=== PATIENT | male | born 1940 | race Caucasian/White ===

== ENCOUNTER → 2019-01-13 | Outpatient (CLI) | payer MEDICARE, BC ==
--- NOTE | 2019-01-13 15:45 | US ---
EXAMINATION TYPE: US kidneys/renal and bladder DATE OF EXAM: 01/13/2019 COMPARISON: NONE CLINICAL HISTORY: R94.4 Abnormal results of kidney function studies. EXAM MEASUREMENTS: Right Kidney: 11.8 x 5.7 x 4.8 cm Left Kidney: 14.7 x 6.2 x 5.6 cm Right Kidney: No hydronephrosis. Cystic area visualized mid pole measuring 1.3 x 1.3 x 1.2 cm Left Kidney: No hydronephrosis. Two cystic areas visualized, largest lower pole measuring 9.2 x 8.3 x 8.8 cm Bladder: wnl Bilateral Jets seen: Yes Cortical medullary differentiation maintained within the kidneys. Cystic foci appear simple cystic IMPRESSION: Bilateral renal cysts
== END | disposition home or self-care (01) ==
LOC: RADUSWWP 15:01
PROVIDERS: ATTEND Family Medicine
DX: N28.1 Cyst of kidney, acquired (principal)
CPT/HCPCS: 76770

== ENCOUNTER → 2021-07-09 | Outpatient (CLI) | payer MEDICARE, BC ==
--- NOTE | 2021-07-09 11:59 | XR ---
EXAMINATION TYPE: XR abdomen 2V DATE OF EXAM: 07/09/2021 COMPARISON: NONE HISTORY: Pain TECHNIQUE: One view abdominal series FINDINGS: The osseous structures are intact. The bowel gas pattern is nonspecific. 6 mm paraspinal calcificati on adjacent to the L4 level on the left. Arthropathy of the hips correlate for femoral acetabular imp ingement with significant hypertrophic change of the lateral margin of the acetabulum. Hypertrophic a nd degenerative change of the spine. Calcifications in the pelvis are nonspecific but likely vascular . IMPRESSION: 1. Nonspecific abdomen with no obstruction 2. Left paraspinal calcification along the left lateral margin of L4 could be within the course of th e left ureter correlate clinically. 3. 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
== END | disposition home or self-care (01) ==
LOC: RADXRYALE 11:19
PROVIDERS: ATTEND Physician Assistant Medical
DX: M12.852 Other specific arthropathies, not elsewhere classified, left hip (principal); M12.851 Other specific arthropathies, not elsewhere classified, right hip; M61.48 Other calcification of muscle, other site
CPT/HCPCS: 74019

== ENCOUNTER → 2021-07-09 | Outpatient (CLI) | payer MEDICARE, BC ==
--- NOTE | 2021-07-09 15:10 | CT ---
EXAMINATION TYPE: CT abdomen pelvis wo con DATE OF EXAM: 07/09/2021 COMPARISON: 07/09/2021 HISTORY: Generalized abdominal pain, no BM x [address] DLP: 1014.8 mGycm Automated exposure control for dose reduction was used. TECHNIQUE: Helical acquisition of images was performed from the lung bases through the pelvis. FINDINGS: LUNG BASES: Segmental changes involving the lung bases are suggestive of atelectasis. Subpleural 2 mm nodule right lower lobe. Finding likely benign. Coronary artery calcification. Atherosclerotic salas e aorta. Subpleural nodule right lower lobe axial image 1. LIVER/GB: No significant abnormality is appreciated. PANCREAS: No significant abnormality is seen. SPLEEN: No significant abnormality is seen. ADRENALS: No significant abnormality is seen. KIDNEYS: There is a 4 mm proximal ureteral calculus with a moderate to severe hydronephrosis and additional pa rapelvic renal cysts simple appearing cyst. However there is a large complicated cyst with calcificat ion and septation measuring 9 cm. Additionally appears to be a 4 mm calculus within the bladder near the UVJ. ADENOPATHY: None visualized. OSSEOUS STRUCTURES: Hypertrophic and degenerative changes of the spine. BOWEL: Bowel gas pattern is nonspecific with changes of diverticulosis but no obstruction. OTHER: Prostate enlarged there is fat-containing bilateral inguinal hernias. Atherosclerotic change o f the aorta and its branch vessels. Fat-containing intramuscular lipoma along lateral margin of the r ight hip measuring 2.2 cm. IMPRESSION: 1. Moderate to severe left hydronephrosis secondary to obstructing proximal left ureteral calculus. C orresponds to the x-ray abnormality. However, additionally there is a 4 mm calculus which appears to be within the bladder at the level of the left UVJ. 2. A complex 9 cm left renal cystic lesion with septation and calcification. Recommend follow-up MRI for further assessment to determine its Bosniak classification. 3. Prostate hypertrophy.
== END | disposition home or self-care (01) ==
LOC: RADCTMAIN 12:59
PROVIDERS: ATTEND Family Medicine
DX: N13.2 Hydronephrosis with renal and ureteral calculous obstruction (principal); N28.1 Cyst of kidney, acquired; N40.0 Benign prostatic hyperplasia without lower urinary tract symptoms; K57.92 Diverticulitis of intestine, part unspecified, without perforation or abscess without bleeding
CPT/HCPCS: 82565; 84520; 74176; 36415; Q9967

== ENCOUNTER → 2021-08-13 | Outpatient (CLI) | payer MEDICARE, BC ==
--- NOTE | 2021-08-13 12:24 | XR ---
EXAMINATION TYPE: XR KUB DATE OF EXAM: 08/13/2021 COMPARISON: CT dated 07/09/2021 INDICATION: Left-sided stone, previous stone in bladder TECHNIQUE: 2 views of the abdomen FINDINGS: 5.5 cm rounded radiopaque shadow is seen in the left side of the pelvis, likely representing the prev iously seen obstructing stone in the urinary bladder. No definite radiodense renal calculi identified by this x-ray. Bilateral pelvic phleboliths and scattered arterial calcifications. Degenerative changes of the lower thoracic, lumbar spine and hip joints. IMPRESSION: The described left pelvic 5.5 cm radiopaque shadow likely represents the previously seen obstructing urinary bladder stone. It is not possible to assess for interval change regarding the previously seen left-sided hydronephrosis by this x-ray. Further ultrasound or CT assessment can be considered if cl inically required.
== END | disposition home or self-care (01) ==
LOC: RADXRMAIN 10:08
PROVIDERS: ATTEND Urology
DX: N21.0 Calculus in bladder (principal)
CPT/HCPCS: 74018

== ENCOUNTER → 2021-09-10 | Outpatient (CLI) | payer MEDICARE, BC ==
--- NOTE | 2021-09-10 11:46 | XR ---
KUB HISTORY: Ureteral calculus Frontal KUB and 2 images correlated prior KUB 08/13/2021, CT scan 07/09/2021 Calcification in the left hemipelvis is stable and may be at the level the distal left ureter. Vascul ar calcifications are present within the pelvis. Suspect lumbar spondylosis, there is suggestion of b enefit to spine at the distal thoracic spine. Correlate for ankylosing spondylitis. Arthropathy noted within the hips, correlate for femoral acetabular impingement. IMPRESSION: Findings are stable, consistent with distal left ureteral calculus.
== END | disposition home or self-care (01) ==
LOC: RADXRMAIN 09:48
PROVIDERS: ATTEND Urology
DX: N20.1 Calculus of ureter (principal)
CPT/HCPCS: 74018

== ENCOUNTER → 2021-10-13 | Outpatient (CLI) | payer MEDICARE, BC ==
--- NOTE | 2021-10-13 14:30 | US ---
EXAMINATION TYPE: US kidneys/renal and bladder DATE OF EXAM: 10/13/2021 COMPARISON: CT & US CLINICAL HISTORY: N20.1 CALCULUS OF LT URETER. H/O left renal stone and cyst EXAM MEASUREMENTS: Right Kidney: 12.4 x 5.9 x 5.4 cm Left Kidney: 13.8 x 6.0 x 5.5 cm Right Kidney: Cyst upper/medial= 1.8 x 1.3 x 1.6 cm Left Kidney: No evidence of hydro, cyst with septation lower pole= 9.2 x 7.1 x 7.7 cm Bladder: Possible 7mm stone at dependant portion Bilateral Jets seen: Yes There is no evidence for hydronephrosis at this point in time. No nephrolithiasis is seen. The urin marychuy bladder is anechoic. Bilateral ureteral jets are seen. IMPRESSION: 1. Mildly Septated cyst lower pole left kidney. Overall similar appearance to prior study.
--- NOTE | 2021-10-13 21:21 | XR ---
EXAMINATION TYPE: XR KUB DATE OF EXAM: 10/13/2021 COMPARISON: X-ray dated 09/10/2021 INDICATION: Left ureteric stone TECHNIQUE: Supine view of the abdomen and pelvis FINDINGS: The previously seen distal left ureteric stone is apparently seen on the right side today, likely dis placed within the urinary bladder. No other definite urinary calculi identified. Stable degenerative changes of the lower thoracic, lumbar spine, sacroiliac joints and hip joints. Ar terial atherosclerotic calcifications. IMPRESSION: Findings suggestive of displacement of the known left distal ureteric obstructing stone seen today on the right side of the pelvis likely within the urinary bladder.
== END | disposition home or self-care (01) ==
LOC: RADUSWWP 13:17
PROVIDERS: ATTEND Urology
DX: N28.1 Cyst of kidney, acquired (principal); Z87.442 Personal history of urinary calculi
CPT/HCPCS: 74018; 76770